=== PATIENT | female | born 1960 | race Caucasian/White ===

== ENCOUNTER 2017-05-31 08:10 | Day surgery (SDC) | payer OTHER ==
[~2017-05-31] VITALS: Ht 162.6 cm; Wt 81.6 kg
[~2017-05-31 08:10] MED LIST: INDO50CA82 PO; OMEP20TA PO; PROM25TA5 OR; SUMA100T15 PO; TOPI50TA53 PO
[2017-05-31] MEDS ORDERED: LIDOCAINE HCL 100 MG/5ML (2%) SYRG INJ IV ONE (09:22)
[2017-05-31] MEDS ORDERED: PROPOFOL 10 MG/ML 20 ML IV ONE ×2 (09:22→10:06)
[2017-05-31] MEDS ORDERED: ceFAZolin 1GM/50ML 50 ML IV ONE (09:27)
[2017-05-31] MEDS ORDERED: BUPIVACAINE W/ EPINEPH 0.25% INJ 50ML MDV ONE (09:54)
[2017-05-31] MEDS ORDERED: LIDOCAINE W/ EPINEPHRINE 2% INJ 20ML VIAL ONE (09:54)
[2017-05-31] MEDS ORDERED: MIDAZOLAM HCL 1MG/1ML-2 ML VIAL ONE ×2 (10:05→10:06)
[2017-05-31] MEDS ORDERED: fentaNYL CITRATE 100 MCG/2 ML VL ONE (10:08)
[2017-05-31] MEDS ORDERED: METOCLOPRAMIDE HCL 5MG/ml INJ 2ml VIAL ONE (10:17)
[2017-05-31] MEDS ORDERED: ONDANSETRON HCL 4 MG/2 ML VIAL ONE (10:19)
[2017-05-31] MEDS ORDERED: LIDOCAINE HCL 2% TOP JELLY 5ML TOP ONE (10:27)
[2017-05-31] MEDS ORDERED: ONDANSETRON HCL 4 MG/2 ML VIAL IV ONE (10:45)
[2017-05-31] MEDS ORDERED: NALOXONE HCL 0.4 MG/ML VIAL IV PRN (10:45)
[2017-05-31] MEDS ORDERED: MORPHINE SULFATE 4 MG/ML SYR/VIAL IV PRN (10:45)
[2017-05-31 11:34] VITALS: BP 115/71
== END 2017-05-31 11:42 | disposition home or self-care (01) ==
LOC: SUR 08:10
PROVIDERS: ATTEND Orthopaedic Surgery
DX: S92.351A Displaced fracture of fifth metatarsal bone, right foot, initial encounter for closed fracture (principal); X58.XXXA Exposure to other specified factors, initial encounter; Y93.9 Activity, unspecified; Y92.9 Unspecified place or not applicable; Y99.9 Unspecified external cause status; E66.9 Obesity, unspecified; G83.9 Paralytic syndrome, unspecified; Z90.49 Acquired absence of other specified parts of digestive tract; Z79.1 Long term (current) use of non-steroidal anti-inflammatories (NSAID); Z79.899 Other long term (current) drug therapy; K21.9 Gastro-esophageal reflux disease without esophagitis; Z87.891 Personal history of nicotine dependence; G40.909 Epilepsy, unspecified, not intractable, without status epilepticus; G47.33 Obstructive sleep apnea (adult) (pediatric); G43.909 Migraine, unspecified, not intractable, without status migrainosus; M19.90 Unspecified osteoarthritis, unspecified site
CPT/HCPCS: 28485; 73620; C1713; C1769; J0690; J2250; J2405; J2704; J2765; J3010

== ENCOUNTER 2018-06-12 15:28 | Emergency (ER) | payer OTHER ==
[~2018-06-12] VITALS: Ht 160 cm; Wt 68.0 kg
[2018-06-12] MEDS ORDERED: SODIUM CHLORIDE 0.9% 1,000 ML IVB ONE (16:00)
[2018-06-12 17:29] LABS: Basophils # (auto) 0 uL; Basophils % (auto) 0.3 % (0.0-2.0); Eosinophils # (auto) 0.1 uL; Eosinophils % (auto) 0.6 % (0.0-7.0); Hematocrit 28.3 % (36.0-46.0); Hemoglobin 9.2 g/dL (12.2-16.2); Lymphocytes # (auto) 1.7 uL; Lymphocytes % (auto) 14.9 % (10.0-50.0); Mean Corpuscular Hgb Conc. 32.5 g/dL (32.0-36.0); Mean Corpuscular Volume 86.1 fL (80.0-100.0); Monocytes # (auto) 0.8 uL; Monocytes % (auto) 6.5 % (0.0-12.0); Neutrophils % (auto) 77.7 % (37.0-80.0); Nucleated Red Blood Cells % 0.2 %; Platelet Count (auto) 416 10^3/uL (140-450); Red Blood Cells 3.28 10^6/uL (4.0-5.20); Red Cell Distribution Width 15.5 % (11.8-14.3); White Blood Cell 11.5 10^3/uL (4.4-10.8)
[2018-06-12 17:42] LABS: Albumin 1.7 g/dL (3.4-5.0); Anion Gap 11 (5-15); Blood Urea Nitrogen 17 mg/dL (7-18); Calcium 7.6 mg/dL (8.5-10.1); Carbon Dioxide 32 mmol/L (21-32); Chloride 89 mmol/L (98-107); Glucose 106 mg/dL (74-106); INR 1.04 (0.9-1.15); Magnesium 1.3 mg/dL (1.6-2.6); Partial Thromboplastin Time 24.2 sec (23.78-33.04); Prothrombin Time 11.1 sec (9.27-12.13); Sodium 132 mmol/L (136-145)
[2018-06-12 17:49] LABS: Alanine Aminotransferase 22 U/L (13-56); Alkaline Phosphatase 86 U/L (45-117); Aspartate Aminotransferase 34 U/L (15-37); BUN/Creatinine Ratio 19.8; Bilirubin, Total 0.5 mg/dL (0.2-1.0); GFR African American 87 mL/min; GFR Non-African American 72 mL/min; Total Protein 6.4 g/dL (6.4-8.2)
[2018-06-12 17:52] LABS: Potassium 2.8 mmol/L (3.5-5.1)
[2018-06-12] MEDS ORDERED: POTASSIUM CHL 10% (20 MEQ/15ML) 15ml ORAL SOLN PO ONE ×2 (18:15→20:30)
[2018-06-12] MEDS: MAGNESIUM SULFATE 1GM/100ML 100 ML IV SCH ×2 (19:30→20:30)
[2018-06-12] MEDS ORDERED: SODIUM CHLORIDE 0.9% 2,000 ML IV ONE (19:45)
[2018-06-12 20:36] LABS: Urine Bacteria FEW /hpf (None Seen); Urine Blood Negative /uL (Negative); Urine Specific Gravity 1.013 (1.001-1.035); Urine WBC 11 /hpf (0 - 5)
[2018-06-12] MEDS ORDERED: cefTRIAXone 1GM/50ML D5W 50 ML IV ONE (22:30)
[2018-06-12 23:03] LABS: Albumin 1.5 g/dL (3.4-5.0); BUN/Creatinine Ratio 19.7; Calcium 6.8 mg/dL (8.5-10.1)
[2018-06-12 23:06] LABS: Bilirubin, Total 0.3 mg/dL (0.2-1.0); Total Protein 5.2 g/dL (6.4-8.2)
[2018-06-12 23:20] LABS: Potassium 2.5 mmol/L (3.5-5.1)
[2018-06-12] MEDS: POTASSIUM CHL 20MEQ/100ML 100 ML IV SCH (23:45)
[2018-06-13] MEDS: POTASSIUM CHL 20MEQ/100ML 100 ML IV SCH (01:45)
[2018-06-13] MEDS ORDERED: POTASSIUM CHL 10% (20 MEQ/15ML) 15ml ORAL SOLN PO ONE (03:15)
[2018-06-13 06:00] VITALS: BP 90/48
[2018-06-13 06:22] LABS: BUN/Creatinine Ratio 15.7; Calcium 7.1 mg/dL (8.5-10.1); Potassium 3.6 mmol/L (3.5-5.1)
[2018-06-13] MEDS ORDERED: cefTRIAXone 1GM/50ML D5W 50 ML IV SCH (09:00)
== END 2018-06-13 07:20 | disposition home or self-care (01) ==
LOC: EDBD 15:28 → ER 15:31
DX: R55 Syncope and collapse (principal); E87.6 Hypokalemia; E83.51 Hypocalcemia; E83.42 Hypomagnesemia; D53.9 Nutritional anemia, unspecified; S01.8 Open wound of other parts of head; W34.09XS Accidental discharge from other specified firearms, sequela
CPT/HCPCS: 36415; 70450; 71045; 80048; 80053; 81001; 83735; 84484; 85025; 85610; 85730; 93005; 94761; 96361; 96365; 96366; 96367; 96368; 99284; J0696; J3475; J3480; J7030